=== PATIENT | male | born 1960 | race Caucasian/White ===

== ENCOUNTER 2021-07-17 09:22 | Emergency (ER) | payer BC ==
[~2021-07-17] VITALS: Ht 185 cm; Wt 125.0 kg
--- OUTSIDE RECORDS SUMMARY | 2021-07-17 09:30 | XMS REPORT | Encounter Summary ---
Author Author [facility] Organization [facility] Address Unknown Phone Unavailable Care Team Providers Care Construction Management Instructor Name Role Phone Singh Justin MD PCP Encounter Details Care Team Description [place] [address] [place] [address] Multiple myeloma in remission (HCC) 07/14/2021 Lab [facility] - [facility] [place] 1st floor [address], [facility], [facility] [phone] Social History Date Tobacco Use Types Packs/Day Years Used Never Smoker Cigars Smokeless Tobacco: Never Used Comments Alcohol Use Standard Drinks/Week 2 drinks a week Yes 0 (1 standard drink = 0.6 o z pure alcohol) Alcohol Habits Answer Date Recorded How often do you have a drink containing alcohol? No t asked How many drinks containing alcohol do you have on No t asked a typical day when you are drinking? How often do you have six or more drinks on one Not asked occasion? Comment: 2 drinks a week 07/08/2015 Sex Assigned at Date Recorded Male 03/26/2019 7:41 AM CDT documented as of this encounter Plan of Treatment Care Team Description Date Type Specialty 07/28/2021 [place] [address] [place] [address] 07/29/2021 Office Visit Medical Oncology documented as of this encounter Procedures Comments Procedure Name Priority Date/Time Associated Diag nosis CBC AND DIFF (MANUAL DIFF STAT 07/14/2021 Mult iple myeloma in IF NECESSARY) 1:50 PM FOLDING MACHINE FEEDER remission (HCC) documented in this encounter Results * CBC and Diff (manual diff if necessary) (07/14/2021 1:50 PM FOLDING MACHINE FEEDER) WBC 3.19 (L) 4.00 - 11.00 TH/uL [facility] RBC 4.57 4.31 - 5.84 mil/uL [facility] Hemoglobin 14.2 13.0 - 17.0 g/dL [facility] Hematocrit 44 40 - 50 % [facility] MCV 95 80 - 99 fL [facility] MCH 31 27 - 34 pg [facility] MCHC 33 32 - 36 % [facility] RDW 14.5 9.0 - 14.5 % [facility] Platelet Count 181 140 - 400 Th/uL [facility] MPV 9.8 9.4 - 12.3 fL [facility] Nucleated RBCs 0 0 - 0 /100 WBC [facility] % Neutrophils 38 (L) 45 - 78 % [facility] % Lymphocytes 33 15 - 47 % [facility] % Monocytes 25 (H) 0 - 12 % [facility] % Eosinophils 2 0 - 7 % [facility] % Basophils 2 0 - 2 % [facility] % Imm Grans 0 0 - 1 % [facility] # Granulocytes 1.21 (L) 1.70 - 6.80 TH/uL [facility] # Lymphocytes 1.05 1.00 - 3.30 TH/uL [facility] # Monocytes 0.79 0.20 - 0.90 TH/uL [facility] # Eosinophils 0.07 0.00 - 0.40 TH/uL [facility] # Basophils 0.07 0.00 - 0.10 TH/uL [facility] Specimen Blood - Venous Performing Organization Address City/State/ZIP Code [facility] [id number] [phone] documented in this encounter Visit Diagnoses Diagnosis Multiple myeloma in remission (HCC) Multiple myeloma in remission documented in this encounter Care Teams Start Date End Date Construction Management Instructor Relationship Specialty 09/06/14 Singh Justin MD PCP - General [facility] [id number] [facility] [address] [place] [address] documented as of this encounter
--- OUTSIDE RECORDS SUMMARY | 2021-07-17 09:30 | XMS REPORT | Encounter Summary ---
Author Author [facility] Organization [facility] Address Unknown Phone Unavailable Care Team Providers Care Ancient Art Curator Name Role Phone Singh Justin MD PCP Encounter Details Care Team Description Date Type Department Leilani Garcia RN 07/14/2021 Orders Only [facility] [address] [place] [address] Social History Date Tobacco Use Types Packs/Day [...] Specialty 07/28/2021 [place] [address] [place] [address] 07/29/2021 Office Visit Medical Oncology documented as of this encounter Visit Diagnoses Not on filedocumented in this encounter Care Teams Start Date End Date Ancient Art Curator Relationship Specialty 09/06/14 Singh Justin MD PCP - General Family [id number] [facility] [address] [place] [address] documented as of this encounter
--- OUTSIDE RECORDS SUMMARY | 2021-07-17 09:30 | XMS REPORT | Clinical Summary ---
Author Author [facility] Organization [facility] Address Unknown Phone Unavailable Care Team Providers Care Zipper Sewing Machine Operator Name Role Phone Singh Justin MD PCP Allergies No known active allergies Medications End Date Status Medication Sig Dispensed Refills Start Date Active vitamin E 1000 UNIT Take 1,000 0 capsule Units by mouth daily. Active coenzyme Q10 10 mg Take 10 mg by 0 capsule mouth daily. Active nitroglycerin (NITROSTAT) Dissolve 1 25 tablet 1 0.4 MG SL tablet tablet (0.4 0 mg total) under the tongue as needed for chest pain. May repeat for a total of 3 doses. Active omega 6-dog-acl-fish Take 2 60 capsule 0 03/13 oil-vit D3 Extra Strength capsules by 0 capsule mouth daily. Active carvediloL (COREG) 3.125 TAKE 1 TABLET 204 tablet 3 MG tablet BY MOUTH 0 TWICE DAILY Active apixaban (ELIQUIS) 5 mg Take one 180 tablet 3 tabletIndications: Other tablet by 1 acute pulmonary embolism mouth twice a without acute cor day pulmonale (HCC) Active DULoxetine (CYMBALTA) 60 Take 1 180 capsule 1 0 mg capsuleIndications: capsule (60 1 Neuropathic pain mg total) by mouth 2 (two) times a day. Active codeine-guaifenesin Take 5 mL by 120 mL 0 04/09 (GUAIFENESIN AC) 10-100 mouth every 6 1 mg/5 mL liquid (six) hours. Take 5 - 10 ml by mouth every 6 hours as needed for cough Max Daily Dose: 20 mL Active guaiFENesin (MUCINEX) 600 Take 600 mg 0 mg Ta12 12 hr tablet by mouth 2 (two) times a day. Active rosuvastatin (CRESTOR) 10 TAKE 1 TABLET 102 tablet 2 MG tabletIndications: BY MOUTH 1 Dyslipidemia, Coronary DAILY artery calcification, Other hyperlipidemia, Essential hypertension, Encounter for long-term (current) use of medications Active omeprazole (PRILOSEC) 20 Take 1 180 capsule 1 0 MG capsuleIndications: capsule (20 1 Gastroesophageal reflux mg total) by disease without mouth 2 (two) esophagitis times a day. Active gabapentin (NEURONTIN) TAKE 4 1080 capsule 2 300 MG CAPSULES BY 1 capsuleIndications: MOUTH 3 Sensory neuropathy TIMES DAILY Active tramadoL (ULTRAM) 50 mg Take 1 tablet 20 tablet 0 tablet (50 mg total) 1 by mouth every 8 (eight) hours as needed for pain. Active lenalidomide (REVLIMID) Take one 21 capsule 0 10 mg capsuleIndications: capsule days 1 multiple myeloma 1-21 every 28 days. Auth # [id number] ICD C90.00. Adult male 07/03/2021 Discontinued (Duplicate orde r - suppress on AVS & suppress cancellation message) lenalidomide (REVLIMID) Take one 21 capsule 0 10 mg capsuleIndications: capsule days 1 multiple myeloma 1-21 every 28 days. Auth # [id number] ICD C90.00. 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 Presented with increased fatigue and sh ortness of breath Has multiple myeloma on revlimid History of DVT CTA with small segmental and subsegment al pulmonary emboli within the rightupper and lower lobes. These are n onocclusive and have a linear eccentric appearance, and may be chroni c -Continue therapeutic loveox -LE ultrasound -Echo -Consult Heme/Onc Neuropathic pain 05/17/2017 Peripheral polyneuropathy 05/17/2017 Last Assessment & Plan: Formatting of this note might be differ ent from the original. S/P velcade for multiple myeloma -Continue gabapentin -Continue cymbalta MATHEW (obstructive sleep apnea) 02/26/2017 Last Assessment & Plan: Formatting of this note might be differ ent from the original. In process of obtaining CPAP History of DVT (deep vein thrombosis) 10/02/2015 Multiple myeloma 09/10/2015 Last Assessment & Plan: Formatting of this note might be differ ent from the original. Hx of stem nell transplant 3 years ago In remission Follows with Dr Woods On revlimid 21/28 days currently week o ff -Consult Heme/Onc Anemia 07/08/2015 Last Assessment & Plan: Formatting of this note might be differ ent from the original. Recent iron studies c/w anemia of chron ic disease. Follow Hgb. Essential hypertension 07/08/2015 Last Assessment & Plan: Formatting of this note might be differ ent from the original. SBP 110-120s -Continue Coreg with hold parameters Agatston CAC score, >400 09/18/2014 Overview: Formatting of this note might be differ ent from the original. Agatston score of 961.6 Heart palpitations 09/10/2014 Gastroesophageal reflux disease 03/27/2014 Last Assessment & Plan: Formatting of this note might be differ ent from the original. 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 GI believes this is likely sec to hemor rhoids. Recs miralax, anusol. No immediate plans for endoscopy. Abnormal laboratory test 07/08/2015 09/20/2019 Acute renal insufficiency 07/08/2015 08/17/2019 Last Assessment & Plan: Formatting of this note might be differ ent from the original. Likely in part due to obstructive stone . Nephrology consulted to further evaluat e. Concerned about multiple myeloma consid er monoclonal gammopathy, unintentional weight loss and hypercalc emia. Heme consulted. Skeletal survey pending. Nephrology has ordered calcitonin and i ncreased IVF's for hypercalcemia. Unintentional weight loss 07/08/2015 07/09/2015 Last Assessment & Plan: Formatting of this note might be differ ent from the original. With blood in stool request GI evaluati on, hold aspirin, check tsh; no palpable lymphadenopathy Ureterolithiasis 07/08/2015 09/20/2019 Last Assessment & Plan: Formatting of this note might be differ ent from the original. Stent and cysto scheduled today. Cont Abx. Constipation 07/08/2015 09/20/2019 Last Assessment & Plan: Formatting of this note might be differ ent from the original. miralax daily; with hemorrhoids will g bob anusol hc bid Encounters Care Team Description Date Type Specialty Alejo Woods MD Multiple myeloma in remission (HCC) 07/14/2021 Lab Lab Leilani Garcia RN 07/14/2021 Orders Only Medical Oncology Leilani Garcia RN Multiple myeloma in remission (HCC) (Porsha amrsha Dx) 07/08/2021 Orders Only Medical Oncology Alejo Woods MD Multiple myeloma in remission (HCC) 07/07/2021 Lab Lab Leilani Garcia RN Multiple myeloma in remission (HCC) (Porsha marsha Dx) 07/07/2021 Orders Only Medical Oncology Alejo Woods MD Specialty Pharmacy Prior Auth Coordinati on 07/03/2021 Specialty Pharmacy Pharmacy Alejo Woods MD Multiple myeloma, remission status unspe cified (HCC) (Primary Dx) 07/03/2021 Transcribe Medical Oncology Orders Natalia Gardner LMSW 07/03/2021 Telephone Medical Oncology Leilani Garcia RN Multiple myeloma in remission (HCC) (Porsha marsha Dx) 07/03/2021 Orders Only Medical Oncology Alejo Woods MD Multiple myeloma in remission (HCC) (Porsha marsha Dx) 07/02/2021 Orders Only Medical Oncology Leilani Garcia RN Multiple myeloma in remission (HCC) (Porsha marsha Dx) 07/02/2021 Orders Only Medical Oncology Alejo Woods MD Medication Refill 06/28/2021 Refill Medical Oncology Alejo Woods MD 06/03/2021 Documentation Medical Oncology Alejo Woods MD Multiple myeloma in remission (HCC) 06/02/2021 Lab Lab Nelli Ny RN 06/02/2021 Orders Only Medical Oncology Leilani Garcia RN Multiple myeloma in remission (HCC) (Porsha marsha Dx) 05/29/2021 Orders Only Medical Oncology Alejo Woods MD Multiple myeloma in remission (HCC) (Porsha marsha Dx) 05/29/2021 Orders Only Medical Oncology Leilani Garcia RN 05/28/2021 Orders Only Medical Oncology Aleoj Woods MD Medication Refill 05/28/2021 Refill Medical Oncology Alejo Woods MD Chemotherapy-induced neutropenia (HCC) 05/13/2021 Lab Lab Alejo Woods MD Chemotherapy-induced neutropenia (HCC) ( Primary Dx); Multiple myeloma in remission (HCC) 05/08/2021 Hospital Infusion Therapy Encounter Alejo Woods MD Chemotherapy-induced neutropenia (HCC) ( Primary Dx); Multiple myeloma in remission (HCC) 05/07/2021 Hospital Infusion Therapy Encounter Alejo Woods MD Chemotherapy-induced neutropenia (HCC) ( Primary Dx); Multiple myeloma in remission (HCC) 05/06/2021 Hospital Infusion Therapy Encounter Nelli Ny RN 05/06/2021 Refill Medical Oncology Nelli Ny RN Chemotherapy-induced neutropenia (HCC) ( Primary Dx) 05/06/2021 Orders Only Medical Oncology Nelli Ny RN Chemotherapy-induced neutropenia (HCC) 05/06/2021 Orders Only Medical Oncology Alejo Woods MD Multiple myeloma in remission (HCC) 05/05/2021 Lab Lab Alejo Woods MD Medication Refill 05/01/2021 Refill Medical Oncology Alejo Woods MD Multiple myeloma in remission (HCC) (Porsha marsha Dx) 04/30/2021 Office Visit Medical Oncology Leilani Garcia RN Multiple myeloma in remission (HCC) (Porsha marsha Dx) 04/30/2021 Orders Only Medical Oncology Alejo Woods MD Multiple myeloma in remission (HCC) (Porsha marsha Dx) 04/30/2021 Orders Only Medical Oncology Leilani Garcia RN 04/30/2021 Orders Only Medical Oncology Alejo Woods MD Multiple myeloma in remission (HCC) 04/28/2021 Lab Lab Eron Gonzalez MD Medication Refill 04/16/2021 Refill Neurology from Last 3 Months Immunizations Name Administration Dates Next Due Hepatitis A (adult) 12/31/2016 Hepatitis A (peds) 06/26/2016 Hepatitis B Vaccine, 12/31/2016, 09/03/2016, Adult Dosage Hib (PRT-T) 11/06/2016, 09/03/2016, IPV 11/06/2016, 09/03/2016, Influenza QIV (IM) 06/26/2016 Influenza, seasonal, 06/01/2019, 09/10/2014 injectable, preservatie free (IIV3). 15 = Influenza TIV Meningococcal (Menactra) 06/26/2016 conjugate vaccine MCV4 Moderna Sars-cov-2 Full 11/22/2020, 10/19/2020 Dose Pneumococcal Conjugate 11/06/2016, 09/03/2016, 13-Valent Pneumococcal 12/31/2016 Polysaccharide 23-Valent Tdap 11/06/2016, 09/03/2016, Family History Medical History Relation Name Comments Cancer Brother 1 Hypertension Brother 2 No Known Problems Brother 3 Diabetes type II Father Stroke Maternal Grandmother Stroke Maternal Uncle Breast cancer Mother Coronary artery disease Mother Stroke Paternal Grandfather Hypertension Paternal Grandmother Coronary artery disease Sister 1 Stroke Sister 1 Hypertension Sister 2 Relation Name Status Comments Brother 1 Cause of was Cancer at age 62. (Age 62) Brother 2 Alive Brother 3 Alive Father Cause of was Diabetes at age 70. (Age 70) Maternal Grandmother Maternal Uncle Mother Cause of was Cancer at age 70. (Age 70) Paternal Grandfather Paternal Grandmother Sister 1 Cause of was CAD at age 72. (Age 72) Sister 2 Alive Social History Date Tobacco Use Types Packs/Day Years Used Never Smoker Cigars Smokeless Tobacco: Never Used Tobacco Cessation: Counseling Given: No Comments Alcohol Use Standard Drinks/Week 2 drinks [...] Date Recorded Male 03/26/2019 7:41 AM CDT Last Filed Vital Signs Reading Time Taken Comments Vital Sign 154/84 05/08/2021 10:15 AM CDT Blood Pressure 79 05/08/2021 10:15 AM CDT Pulse 36.8 C (98.3 F) 05/08/2021 10:15 AM CDT Temperature 18 05/08/2021 10:15 AM CDT Respiratory Rate 96% 05/08/2021 10:15 AM CDT Oxygen Saturation - - Inhaled Oxygen Concentration 125 kg (275 lb 9.6 oz) 05/06/2021 10:20 AM CDT Weight 185.4 cm (6' 0.99") 05/06/2021 10:20 AM CDT Height 36.37 05/06/2021 10:20 AM CDT Body Mass Index Plan of Treatment Care Team Description Date Type Specialty 07/28/2021 [place] [address] [address] 07/29/2021 Office Visit Medical Oncology Health Maintenance Due Date Last Done Comments Hepatitis C Screen 1960 Zoster Vaccine# (1 of 2) 2008 Influenza Vaccine (#1) 2021 06/01/2019, 06/26/2016, 09/10/2014 COVID-19 Vaccine (4 - 10/24/2021 04/23/2021, Booster for Moderna 11/22/2020, series) 10/19/2020 Pneumococcal Vaccine: 12/31/2021 12/31/2016, Pediatrics (0 to 5 Years) 11/06/2016, and At-Risk Patients (6 09/03/2016, to 64 Years) (3 of 4 - Additional PPSV23) history exists Colorectal Screening via 04/19/2024 04/19/2014 Colonoscopy Td/Tdap# 11/06/2026 11/06/2016, 09/03/2016, 06/26/2016 Implants Device Identifier Shelf Expiration Date Model / Serial / L ot Implanted Type Area Manufactur er 10/15/2019 [id number] / / [id number] Implant Stent Ureteral Open Tip Non-Tissue ACMI 4.5fr X 28cm [id number] - [id number] Implant Implanted: Qty: 1 on 07/10/2015 by Bryan Cabral MD at [facility] Procedures Comments Procedure Name Priority Date/Time Associated Diag nosis CBC AND DIFF (MANUAL DIFF STAT 07/14/2021 Mult iple myeloma in IF NECESSARY) 1:50 PM HARDBOARD PANEL PRINTER remission (HCC) CBC AND DIFF (MANUAL DIFF STAT 07/07/2021 Mult iple myeloma in IF NECESSARY) 8:58 AM CDT remission (HCC) CBC AND DIFF (MANUAL DIFF STAT 06/02/2021 Mult iple myeloma in IF NECESSARY) 9:05 AM CDT remission (HCC) CBC AND DIFF (MANUAL DIFF STAT 05/13/2021 Chem otherapy-induced IF NECESSARY) 9:50 AM CDT neutropenia (HCC) CBC AND DIFF (MANUAL DIFF STAT 05/05/2021 Mult iple myeloma in IF NECESSARY) 10:37 AM CDT remission (HCC) PROTEIN ELECTROPHORESIS STAT 04/28/2021 Multip le myeloma in SERUM 9:52 AM CDT remission (HCC) IMMUNOGLOBULIN G, A, M STAT 04/28/2021 Multipl e myeloma in 9:52 AM CDT remission (HCC) IMMUNOFIXATION SERUM STAT 04/28/2021 Multiple myeloma in 9:52 AM CDT remission (HCC) FREE KAPPA+LAMBDA LIGHT STAT 04/28/2021 Multip le myeloma in CHAINS SERUM 9:52 AM CDT remission (HCC) COMPREHENSIVE METABOLIC STAT 04/28/2021 Multip le myeloma in PANEL 9:52 AM CDT remission (HCC) CBC AND DIFF (MANUAL DIFF STAT 04/28/2021 Mult iple myeloma in IF NECESSARY) 9:52 AM CDT remission (HCC) from Last 3 Months Results * CBC and Diff (manual diff if necessary) (07/14/2021 1:50 PM HARDBOARD PANEL PRINTER) Only the most recent of 6 results within the time period is included. WBC 3.19 (L) 4.00 - 11.00 TH/uL [facility] RBC 4.57 4.31 - 5.84 mil/uL [facility] Hemoglobin 14.2 13.0 - 17.0 g/dL [facility] Hematocrit 44 40 - 50 % [facility] MCV 95 80 - 99 fL [facility] MCH 31 27 - 34 pg [facility] MCHC 33 32 - 36 % [facility] RDW 14.5 9.0 - 14.5 % [facility] Platelet Count 181 140 - 400 Th/uL [facility] MPV 9.8 9.4 - 12.3 fL [facility] Nucleated RBCs 0 0 - 0 /100 WBC [facility] % Neutrophils 38 (L) 45 - 78 % [facility] % Lymphocytes 33 15 - 47 % [facility] % Monocytes 25 (H) 0 - 12 % [facility] % Eosinophils 2 0 - 7 % [facility] % Basophils 2 0 - 2 % [facility] % Imm Grans 0 0 - 1 % [facility] # Granulocytes 1.21 (L) 1.70 - 6.80 TH/uL [facility] # Lymphocytes 1.05 1.00 - 3.30 TH/uL [facility] # Monocytes 0.79 0.20 - 0.90 TH/uL [facility] # Eosinophils 0.07 0.00 - 0.40 TH/uL [facility] # Basophils 0.07 0.00 - 0.10 TH/uL [facility] Specimen Blood - Venous Performing Organization Address City/State/ZIP Code P abril Number [facility] [address] [place] [address] * Free [place]+Lambda Light Chains Serum (04/28/2021 9:52 AM CDT) Pathologist [facility] Free [place] 44.0 (H) 3.3 - 19.4 mg/L [facility] Light Chains Free [place]ambda 26.5 (H) 5.7 - 26.3 mg/L [facility] Light Chains [place]/Lambda 1.66 (H) 0.26 - 1.65 [facility] Ratio Comment: Performed at: BN - [facility] [address] [id number] Door Opener: Yung Lane MD, Phone: [phone] Specimen Blood Performing Organization Address City/[facility] Code P abril Number [facility] [address] [place], [place] [address] [facility] Interface [id number] [place] [address] 5 [facility]7 [facility] * Protein Electrophoresis Serum (04/28/2021 9:52 AM CDT) [facility] Protein Total 7.5 6.0 - 8.2 g/dL [facility] Albumin 3.6 3.3 - 5.0 g/dL [facility] Alpha 1 0.2 0.1 - 0.3 g/dL [facility] Alpha 2 0.8 0.5 - 1.0 g/dL [facility] Beta 1.3 0.7 - 1.5 g/dL [facility] Gamma 1.6 0.5 - 1.7 g/dL [facility] A/G Ratio 0.9 [facility] Pathologist Reviewed by Claude [facility] Cristian Elena Scott, SARAH.Comment: Normal Hospital La b protein electrophoresis pattern. Specimen Blood Performing Organization Address City/State/ZIP Code P abril Number [facility] [address] [place] [address] LABORATORIES [facility] [address] [place] [address] * Immunoglobulin G, A, M (04/28/2021 9:52 AM CDT) Immunoglobulin 396 60 - 400 mg/dL [facility] Immunoglobulin 1,333 600 - 1,500 mg/dL [facility] Lab Immunoglobulin 112 50 - 300 mg/dL [facility] Lab Specimen Blood Performing Organization Address City/[facility]/ZIP Code P abril Number [address] [address] LABORATORIES [facility] [address] [place] [address] * Immunofixation Serum (04/28/2021 9:52 AM CDT) Pathologist [facility] Immunofixation No monoclonal protein [facility] identified. Hospital Lab Pathologist Reviewed by [facility] M.D., SARAH. Hospital Lab Specimen Blood Performing Organization Address City/[facility] P abril Number [address] [address] LABORATORIES [facility] [address] [place] [address] * Comprehensive Metabolic Panel (04/28/2021 9:52 AM CDT) [facility] Sodium 138 133 - 147 MEQ/L [facility] Lab Potassium 5.0 3.5 - 5.3 MEQ/L [facility] Chloride 104 96 - 112 MEQ/L [facility] Carbon Dioxide 28 20 - 32 MEQ/L [facility] Anion Gap 5 5 - 17 [facility] Lab Calcium 9.2 8.4 - 10.5 mg/dL [facility] Glucose 135 (H) 70 - 100 mg/dL [facility] Protein Total 7.5 6.0 - 8.2 g/dL [facility] Serum [facility] Albumin 4.1 3.5 - 5.0 g/dL [facility] Alkaline 59 42 - 140 IU/L [facility] Phosphatase [facility] Alanine 37 0 - 49 IU/L [facility] Aminotransferas [facility] e Aspartate 33 15 - 46 IU/L [facility] Aminotransferas [facility] e Bilirubin Total 0.5 0.2 - 1.3 mg/dL [facility] Blood Urea 20 7 - 26 mg/dL [facility] Nitrogen [facility] Creatinine 1.2 0.6 - 1.3 mg/dL [facility] eGFR Male AA 74 60 - 200 [facility] mL/min/1.73sq m [facility] eGFR Male 61 60 - 200 [facility] Non-AA mL/min/1.73sq m [facility] Specimen Blood Performing Organization Address City/State/ZIP Code P abril Number [facility] [address] [place] [address] [facility] [address] [place] [address] from Last 3 Months Insurance Type Payer Benefit Subscriber ID Effective Phone Address Plan / Dates Group [facility] [id number] 2020-P [address] [place] [address] Advance Directives For more information, please contact: [phone] Patient Mail Censor Explanation Type Date Recorded Advance Directives and Living Will Power of Tank Truck Mechanic Health Care Directive Date Inactivated Comments Code Status Date Activated 11/18/2018 5:43 PM Full Code 11/17/2018 2:17 PM 07/11/2015 5:51 PM Full Code 07/10/2015 1:13 PM 07/10/2015 1:13 PM Full Code 07/10/2015 11:38 AM 07/10/2015 11:38 AM Full Code 07/08/2015 2:52 PM Care Teams Start Date End Date Zipper Sewing Machine Operator Relationship Specialty 09/06/14 Singh Justin MD PCP - General [address] [address]
--- OUTSIDE RECORDS SUMMARY | 2021-07-17 09:31 | XMS REPORT | Encounter Summary ---
Author Author [facility] Organization [facility] Address Unknown Phone Unavailable Care Team Providers Care Network Cabler Name Role Phone Singh Justin MD PCP Reason for Referral * Consultation (Routine) - Authorized Diagnoses / Procedures Referred By [facility] Multiple myeloma, remission status unspecified (H[place]) [place] [address] [place] [address] [facility] Cancer [address] [place] [address] Medical Oncology Referral ID Status Reason Start Date Expiration Visits Vi sits Date Requested Authorized [id number] Authorized Specialty Services 07/03/2021 01/01/2022 1 1 Required Encounter Details Care Team Description [place] [address] [place], [place] [address] Multiple myeloma, remission status unspe cified (HCC) (Primary Dx) 07/03/2021 Transcribe [facility] Cancer Orders Specialists [address] [facility] [address] [place] [address] Social History Date Tobacco Use Types Packs/Day [...] Specialty 07/28/2021 [place] [address] [facility] [address] [place], [place] [id number] 07/29/2021 Office Visit Medical Oncology Order Schedule Name Type Priority Associated Diag noses 1 Occurrences starting 07/03/2021 until 01/01/2022 SOARS Referral to Social Outpatient Routine Multi ple myeloma, Work Referral remission status unspecified (HCC) documented as of this encounter Visit Diagnoses Diagnosis Multiple myeloma, remission status unsp ecified (HCC) - Primary documented in this encounter Care Teams Start Date End Date Network Cabler Relationship Specialty 09/06/14 Singh Justin MD PCP - General [address] [place], [place] [id number] documented as of this encounter
--- OUTSIDE RECORDS SUMMARY | 2021-07-17 09:31 | XMS REPORT | Encounter Summary ---
Author Author Organization Address Unknown Phone Unavailable Care Team Providers Care Cutter Banana Room Name Role Phone Singh Justin MD PCP Encounter Details Care Team Description [place] [address] [place], [place] [id number] 06/03/2021 Documentation [facility] Specialists [address] [place], [place] [id number] Social History Date Tobacco Use Types Packs/Day [...] Specialty 07/28/2021 [place] [address] [place], [place] [phone] 07/29/2021 Office Visit Medical Oncology documented as of this encounter Visit Diagnoses Not on filedocumented in this encounter Care Teams Start Date End Date Cutter Banana Room Relationship Specialty 09/06/14 Singh Justin MD PCP - General [address] [address] documented as of this encounter
--- OUTSIDE RECORDS SUMMARY | 2021-07-17 09:31 | XMS REPORT | Encounter Summary ---
Author Author [facility] Organization [facility] Address Unknown Phone Unavailable Care Team Providers Care Guest Relations Agent Name Role Phone Singh Justin MD PCP Encounter Details Care Team Description Date Type Department Lielani Garcia RN Multiple myeloma in remission (HCC) ([facility] marsha Dx) 07/08/2021 Orders Only [facility] [address] [place] [address] Social History Date Tobacco Use [...] Specialty 07/28/2021 [place] [address] [address] [place] [address] 07/29/2021 Office Visit Medical Oncology documented as of this encounter Visit Diagnoses Diagnosis Multiple myeloma in remission (HCC) - P rimary Multiple myeloma in remission documented in this encounter Care Teams Start Date End Date Guest Relations Agent Relationship Specialty 09/06/14 Singh Justin MD PCP - General [facility] [address] [place] [address] documented as of this encounter
--- OUTSIDE RECORDS SUMMARY | 2021-07-17 09:31 | XMS REPORT | Encounter Summary ---
Author Author [facility] Organization [facility] Address Unknown Phone Unavailable Care Team Providers Care Shared Services Representative Name Role Phone Singh Justin MD PCP Encounter Details Care Team Description [place] [address] [place] [address] Multiple myeloma in remission (HCC) ([facility] larson Dx) 07/02/2021 Orders Only [facility] [address] [place], [place] [id number] Social History Date Tobacco Use Types Packs/Day [...] Specialty 07/28/2021 [place] [address] [place], [place] [phone] 07/29/2021 Office Visit Medical Oncology documented as of this encounter Visit Diagnoses Diagnosis Multiple myeloma in remission (HCC) - P rimary Multiple myeloma in remission documented in this encounter Care Teams Start Date End Date Shared Services Representative Relationship Specialty 09/06/14 Singh Justin MD PCP - General [address] [place] [address] documented as of this encounter
--- OUTSIDE RECORDS SUMMARY | 2021-07-17 09:31 | XMS REPORT | Encounter Summary ---
Author Author [facility] Organization [facility] Address Unknown Phone Unavailable Care Team Providers Care Associate Dentist Name Role Phone Singh Justin MD PCP Encounter Details Care Team Description Date Type Department Natalia Gardner LMSW 07/03/2021 Telephone [facility] [address] [facility] [address] [place] [address] Social History Date Tobacco Use Types Packs/Day [...] AM CDT documented as of this encounter Miscellaneous Notes * Telephone Encounter - Natalia Gardner LMSW - 07/03/2021 1:25 PM CDT Fiona referral for asst with prior auth for Revlimid. Deya RN sent message alen del toro who could help with a prior auth for Revlimid. Radha from [facility] pharmacy will do the prior auth. documented in this encounter Plan of Treatment Care Team Description Date Type Specialty 07/28/2021 [place] [address] [place] [address] 07/29/2021 Office Visit Medical Oncology documented as of this encounter Visit Diagnoses Not on filedocumented in this encounter Care Teams Start Date End Date Associate Dentist Relationship Specialty 09/06/14 Singh Justin MD PCP - General Family [address] [facility] [address] [place] [address] documented as of this encounter
--- OUTSIDE RECORDS SUMMARY | 2021-07-17 09:31 | XMS REPORT | Encounter Summary ---
Author Author [facility] Organization [facility] Address Unknown Phone Unavailable Care Team Providers Care Nurse Orthopedic Name Role Phone Singh Justin MD PCP Encounter Details Care Team Description [place] [address] [address] Specialty Pharmacy Prior Auth Coordinati on 07/03/2021 Specialty [facility] [address] [place] [address] Social History Date Tobacco Use Types Packs/Day [...] AM CDT documented as of this encounter Progress Notes * Radha Pacheco - 07/03/2021 2:11 PM CDT Specialty Pharmacy Prior Authorization Progress Note Medication(s): Revlimid Prior Authorization Status: Approved Approved through: 07/03/22 Fill Pharmacy: [facility] Approval letter scanned into [employer] Patient can continue filling with [facility]. MPN contacted [employer] to inform of appr oval. RX reprocessed for $0 copay. [employer] will contact patient for delivery. Radha Pacheco * Radha Pacheco - 07/03/2021 2:11 PM CDT A reauthorization request for Revlimid has been submitted to [employer]. EOC ID: [id number] documented in this encounter Plan of Treatment Care Team Description Date Type Specialty 07/28/2021 [place] [address] [address] [facility] [address] [place] [address] 07/29/2021 Office Visit Medical Oncology documented as of this encounter Visit Diagnoses Not on filedocumented in this encounter Care Teams Start Date End Date Nurse Orthopedic Relationship Specialty 09/06/14 Singh Justin MD PCP - General Family [address] [facility] [address] [place] [address] documented as of this encounter
--- OUTSIDE RECORDS SUMMARY | 2021-07-17 09:31 | XMS REPORT | Encounter Summary ---
Author Author [facility] Organization [facility] Address Unknown Phone Unavailable Care Team Providers Care Guard Museum Name Role Phone Singh Justin MD PCP Encounter Details Care Team Description Date [place] [address] [place] [address] Multiple myeloma in remission (HCC) 07/07/2021 Lab [facility]st [facility] [address], [facility] [phone] Social History Date Tobacco Use Types Packs/Day [...] Specialty 07/28/2021 [place] [address] [place] [address] 07/29/2021 Office Visit Medical Oncology documented as of this encounter Procedures Comments Procedure Name Priority Date/Time Associated Diag nosis CBC AND DIFF (MANUAL DIFF STAT 07/07/2021 Mult iple myeloma in IF NECESSARY) 8:58 AM CDT remission (HCC) documented in this encounter Results * CBC and Diff (manual diff if necessary) (07/07/2021 8:58 AM CDT) WBC 2.55 (L) 4.00 - 11.00 TH/uL [facility] RBC 4.46 4.31 - 5.84 mil/uL [facility] Hemoglobin 14.0 13.0 - 17.0 g/dL [facility] Hematocrit 43 40 - 50 % [facility] MCV 96 80 - 99 fL [facility] MCH 31 27 - 34 pg [facility] MCHC 33 32 - 36 % [facility] RDW 14.4 9.0 - 14.5 % [facility] Platelet Count 186 140 - 400 Th/uL [facility] MPV 10.4 9.4 - 12.3 fL [facility] Nucleated RBCs 0 0 - 0 /100 WBC [facility] % Neutrophils 33 (L) 45 - 78 % [facility] % Lymphocytes 42 15 - 47 % [facility] % Monocytes 17 (H) 0 - 12 % [facility] % Eosinophils 8 (H) 0 - 7 % [facility] % Basophils 1 0 - 2 % [facility] % Imm Grans 0 0 - 1 % [facility] # Granulocytes 0.84 (L) 1.70 - 6.80 TH/uL [facility] # Lymphocytes 1.06 1.00 - 3.30 TH/uL [facility] # Monocytes 0.44 0.20 - 0.90 TH/uL [facility] # Eosinophils 0.20 0.00 - 0.40 TH/uL [facility] # Basophils 0.02 0.00 - 0.10 TH/uL [facility] Specimen Blood - Venous Performing Organization Address City/State/ZIP Code P abril Number [facility] [address] [id number] documented in this encounter Visit Diagnoses Diagnosis Multiple myeloma in remission (HCC) Multiple myeloma in remission documented in this encounter Care Teams Start Date End Date Guard Museum Relationship Specialty 09/06/14 Singh Justin MD PCP - General [facility] [address] [facility] [address] [place] [address] documented as of this encounter
--- OUTSIDE RECORDS SUMMARY | 2021-07-17 09:31 | XMS REPORT | Encounter Summary ---
Author Author [facility] Organization [facility] Address Unknown Phone Unavailable Care Team Providers Care Outpatient Program Coordinator Name Role Phone Singh Justin MD PCP Reason for Visit * Reason Comments Medication Refill Encounter Details Care Team Description Date [place] [address] [place], [place] [phone] Medication Refill 06/28/2021 Refill [facility] [address] [place], [place] [phone] Social History Date Tobacco Use Types Packs/Day [...] Specialty 07/28/2021 [place] [address] [place], [place] [phone] 07/29/2021 Office Visit Medical Oncology documented as of this encounter Visit Diagnoses Diagnosis Multiple myeloma in remission (HCC) Multiple myeloma in remission documented in this encounter Care Teams Start Date End Date Outpatient Program Coordinator Relationship Specialty 09/06/14 Singh Justin MD PCP - General [address] [address] documented as of this encounter
--- OUTSIDE RECORDS SUMMARY | 2021-07-17 09:31 | XMS REPORT | Encounter Summary ---
Author Author [facility] Organization [facility] Address Unknown Phone Unavailable Care Team Providers Care Car Inspection And Repair Manager Name Role Phone Singh Justin MD PCP Encounter Details Care Team Description Date Type Department Leilani Garcia RN Multiple myeloma in remission (HCC) ([facility] marsha Dx) 07/02/2021 Orders Only [facility] [address] [place] [address] Social History Date Tobacco Use [...] Specialty 07/28/2021 [place] [address] [address] [place] [address] 07/29/2021 Office Visit Medical Oncology documented as of this encounter Visit Diagnoses Diagnosis Multiple myeloma in remission (HCC) - P rimary Multiple myeloma in remission documented in this encounter Care Teams Start Date End Date Car Inspection And Repair Manager Relationship Specialty 09/06/14 Singh Justin MD PCP - General [facility] [address] [place] [address] documented as of this encounter
--- OUTSIDE RECORDS SUMMARY | 2021-07-17 09:31 | XMS REPORT | Encounter Summary ---
Author Author [facility] Organization [facility] Address Unknown Phone Unavailable Care Team Providers Care Fork Truck Operator Name Role Phone Singh Justin MD PCP Encounter Details Care Team Description Date Type Department Leilani Garcia RN Multiple myeloma in remission (HCC) ([facility] marsha Dx) 07/07/2021 Orders Only [facility] [address] [place] [address] Social History Date Tobacco Use [...] Specialty 07/28/2021 [place] [address] [address] [place] [address] 07/29/2021 Office Visit Medical Oncology documented as of this encounter Results * CBC and Diff (manual diff if necessary) (07/14/2021 1:50 PM MANAGER [facility]ISSION) WBC 3.19 (L) 4.00 - 11.00 TH/uL [facility] RBC 4.57 4.31 - 5.84 mil/uL [facility] Hemoglobin 14.2 13.0 - 17.0 g/dL [facility] Hematocrit 44 40 - 50 % [facility] MCV 95 80 - 99 fL [facility] MCH 31 27 - 34 pg [facility] MCHC 33 32 - 36 % [facility] RDW 14.5 9.0 - 14.5 % [facility] Platelet Count 181 140 - 400 Th/uL [facility] MPV 9.8 9.4 - 12.3 fL [facility] Nucleated RBCs 0 0 - 0 /100 WBC [facility] % Neutrophils 38 (L) 45 - 78 % [facility] % Lymphocytes 33 15 - 47 % [facility] % Monocytes 25 (H) 0 - 12 % [facility] % Eosinophils 2 0 - 7 % [facility] % Basophils 2 0 - 2 % [facility] % Imm Grans 0 0 - 1 % [facility] # Granulocytes 1.21 (L) 1.70 - 6.80 TH/uL [facility] # Lymphocytes 1.05 1.00 - 3.30 TH/uL [facility] # Monocytes 0.79 0.20 - 0.90 TH/uL [facility] # Eosinophils 0.07 0.00 - 0.40 TH/uL [facility] # Basophils 0.07 0.00 - 0.10 TH/uL [facility] Specimen Blood - Venous Performing Organization Address City/State/ZIP Code P abril Number [facility] [address] [place] [address] documented in this encounter Visit Diagnoses Diagnosis Multiple myeloma in remission (HCC) - P rimary Multiple myeloma in remission documented in this encounter Care Teams Start Date End Date Fork Truck Operator Relationship Specialty 09/06/14 Singh Justin MD PCP - General Family [address] [facility] [address] [place] [address] documented as of this encounter
--- OUTSIDE RECORDS SUMMARY | 2021-07-17 09:31 | XMS REPORT | Encounter Summary ---
Author Author [facility] Organization [facility] Address Unknown Phone Unavailable Care Team Providers Care Grader Tender Name Role Phone Singh Justin MD PCP Encounter Details Care Team Description Date Type Department Leilani Garcia RN Multiple myeloma in remission (HCC) ([facility] marsha Dx) 07/03/2021 Orders Only [facility] [address] [place] [address] Social History Date Tobacco Use [...] Specialty 07/28/2021 [place] [address] [address] [place] [address] 07/29/2021 Office Visit Medical Oncology documented as of this encounter Visit Diagnoses Diagnosis Multiple myeloma in remission (HCC) - P rimary Multiple myeloma in remission documented in this encounter Care Teams Start Date End Date Grader Tender Relationship Specialty 09/06/14 Singh Justin MD PCP - General [facility] [address] [place] [address] documented as of this encounter
--- OUTSIDE RECORDS SUMMARY | 2021-07-17 09:32 | XMS REPORT | Clinical Summary ---
Author Author [facility] Organization [facility] Address Unknown Phone Unavailable Care Team Providers Care Children'S Lunchroom Supervisor Name Role Phone Miles Conn DO Unavailable Singh Justin MD PCP Hernando Oseguera MD Unavailable Arpit Subramanian MD Unavailable Alejo Woods MD Unavailable Source Comments Some departments are not documenting in the electronic medical record. If you d o not see the information that you expected, contact Release of Information in [facility] Health Information Management department at [phone] for further assistan ce in locating additional records.[facility] Allergies No known active allergies Medications End Date Status Medication Sig Dispensed Refills Start Date Active FLAXSEED OIL (OMEGA 3 PO) Take 1 Cap by 0 mouth daily. ON HOLD DURING TRANSPLANT Active omeprazole DR(+) Take 1 Cap by 90 Cap 0 12/01/ 01 (PRILOSEC) 20 mg capsule mouth twice 6 daily. ON HOLD DURING TRANSPLANT Active carvedilol (COREG) 3.125 Take 1 Tab by 0 12/05 / mg tablet mouth twice 6 daily with meals. HOLD FOR NOW WITH DROP IN BLOOD PRESSURE 12/05 Active AMITRIPTYLINE HCL Pt not using. 100 g 2 (AMITRIPTYLINE/GABAPENTIN 6 /EMU OIL(#)) 4/4/10 %Indications: Neuropathy, Multiple myeloma (HCC) Active rosuvastatin (CRESTOR) 10 Take 1 Tab by 90 Tab 0 mg tablet mouth at 6 bedtime daily. Active traMADol (ULTRAM) 50 mg Take 1 Tab by 0 tablet mouth at 6 bedtime daily. Active DULOXETINE HCL (CYMBALTA Take by 0 PO) mouth. Active rivaroxaban (XARELTO) 10 Take 1 Tab by 30 Tab 0 mg tablet mouth daily. 6 Active gabapentin (NEURONTIN) Take 3 240 Cap 3 300 mg capsule capsules by 6 mouth in the morning, 2 capsules in the afternoon and 3 capsules at bedtime Additional Information Patient taking differently: Take 3 capsules by mouth in the morning, 3 capsules in the afternoon and 3 capsules at bedtime, Reported on 12/14/2017 Active UBIDECARENONE/OMEGA-3/VIT Take by 0 E (CO [id number] E-FISH mouth daily. OIL PO) Active VITAMIN E ACETATE Take by 0 (VITAMIN E PO) mouth daily. Active aspirin EC 81 mg tablet Take 81 mg by 0 mouth daily. Take with food. Active folic acid (FOLVITE) 1 mg Take 1 mg by 0 tablet mouth daily. Active magnesium oxide (MAG-OX) Take 400 mg 0 400 mg tablet by mouth daily. Active Problems Problem Noted Date Peripheral neuropathy 12/15/2015 Fatigue 12/06/2015 H/O peripheral stem cell transplant 12/03/2015 Overview: Formatting of this note might be differ ent from the original. 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 CMV: negative Cell Source: Peripheral, autologous, cr yopreserved Consents/Studies: 8322, autologous, blo od Coordinator: Ashtyn Carvalho RN Chemotherapy-induced nausea 12/03/2015 DVT (deep venous thrombosis) 11/20/2015 Multiple myeloma 11/08/2015 Resolved Problems Problem Noted Date Resolved Date Nausea 12/16/2015 06/17/2016 Tachycardia 12/12/2015 12/14/2015 Dizziness 12/11/2015 06/17/2016 Fall at home 12/11/2015 06/17/2016 Dyspepsia 12/09/2015 06/17/2016 Pancytopenia due to antineoplastic chemotherapy 12/06/2015 06/17/2016 Diarrhea 12/04/2015 06/17/2016 Conditioning chemotherapy prior to peripheral blood s tem cell transplant 12/02/2015 12/04/2015 Immunizations Name Administration Dates Next Due Flu Vaccine Quadrivalent 06/17/2016 =>3 Yo (Preservative Free) MMR Vaccine 12/14/2017 Surgical History Surgery Date Site/Laterality Comments TONSILLECTOMY COLONOSCOPY Medical History Medical History Date Comments Multiple myeloma and immunoproliferative neoplasms (HCC) Hypertension Stomach disorder Family History Medical History Relation Name Comments Cancer Brother Diabetes Father Stroke Maternal Aunt Unknown to Patient Maternal Grandfather Stroke Maternal Grandmother Stroke Maternal Uncle Cancer Mother Stroke Paternal Grandfather Hypertension Paternal Grandmother Stroke Sister Relation Name Status Comments Brother Father Maternal Aunt Maternal Grandfather Maternal Grandmother Maternal Uncle Mother Paternal Grandfather Paternal Grandmother Sister Social History Date Tobacco Use Types Packs/Day Years Used Passive Smoke Exposure - Never Smoker Smokeless Tobacco: Never Used Comments Alcohol Use Standard Drinks/Week No 0 (1 standard drink = 0.6 o z pure alcohol) Sex Assigned at Date Recorded Not on file Last Filed Vital Signs Reading Time Taken Comments Vital Sign 118/75 12/13/2018 10:10 AM CDT Blood Pressure 87 12/13/2018 10:10 AM CDT Pulse 36.8 C (98.3 F) 12/13/2018 10:10 AM CDT Temperature 16 12/13/2018 10:10 AM CDT Respiratory Rate 100% 12/13/2018 10:10 AM CDT Oxygen Saturation - - Inhaled Oxygen Concentration 127.1 kg (280 lb 3.2 oz) 12/13/2018 10:10 AM CDT Weight 185.4 cm (6' 0.99") 12/13/2018 10:10 AM CDT Height 36.98 12/13/2018 10:10 AM CDT Body Mass Index Plan of Treatment Health Maintenance Due Date Last Done Comments HIV SCREENING 1973 DTAP/TDAP VACCINES (1 - 1976 Tdap) HEPATITIS C SCREENING 1976 PHYSICAL (COMPREHENSIVE) 1976 EXAM COLORECTAL CANCER 2008 SCREENING SHINGLES RECOMBINANT 2008 VACCINE (1 of 2) COVID-19 VACCINE (2 - 11/16/2020 10/19/2020 Moderna risk 4-dose series) INFLUENZA VACCINE 04/06/2021 06/17/2016 Implants Device Identifier Shelf Expiration Date Model / Serial / L ot Implanted Type Area Manufactur er [id number] 09/02/2017 [id number] / [employer] / [id number] Cath 23cm 12fr Hk Trf - Strifusion Right: Chest CR Implanted: Qty: 1 on 11/26/2015 by BARD:Aj Curiel MD at [facility] Results Not on filefrom Last 3 Months Insurance Type Payer Benefit Subscriber ID Effective Phone Address Plan / Dates Group PPO BCBS MARY BCBS MARY [id number] 2020-P [phone] [address] [facility] resent [id number] [place] [address] [phone] [id number] [facility] (Home[facility] [place] [address] Advance Directives Patient Agricultural Research Director Explanation Type Date Recorded Advance 12/04/2016 8:51 AM Directive/DPOA Care Teams Start Date End Date Children'S Lunchroom Supervisor Relationship Specialty 10/30/15 Miles Conn DO PCP - BMT [address] [facility] Transplant [place], [place] [phone] 10/31/15 Singh Justin MD PCP - General Family [address] [facility] [address] [place] [address] 11/08/15 Hernando Oseguera MD Hematology & [address] [facility] Oncology Cancer [place], [place] [phone] 11/08/15 Arpit Subramanian MD Internal [address] [place], [place] [phone] 02/19/20 Alejo Woods MD Attending Hematology & [address] [facility] Oncology [address] [place] [address]
--- OUTSIDE RECORDS SUMMARY | 2021-07-17 09:32 | XMS REPORT | Encounter Summary ---
Author Author [facility] Organization [facility] Address Unknown Phone Unavailable Care Team Providers Care House Wrecker Name Role Phone Singh Justin MD PCP Encounter Details Care Team Description Date Type Department Nelli Ny RN 06/02/2021 Orders Only [facility] [address] [place] [address] Social History Date Tobacco Use [...] Specialty 07/28/2021 [place] [address] [address] [place] [address] 07/29/2021 Office Visit Medical Oncology documented as of this encounter Visit Diagnoses Not on filedocumented in this encounter Care Teams Start Date End Date House Wrecker Relationship Specialty 09/06/14 Singh Justin MD PCP - General [address] [place] [address] documented as of this encounter
--- OUTSIDE RECORDS SUMMARY | 2021-07-17 09:32 | XMS REPORT | Encounter Summary ---
Author Author [facility] Organization [facility] Address Unknown Phone Unavailable Care Team Providers Care Lease Out Worker Name Role Phone Singh Justin MD PCP Reason for Visit * Reason Comments Medication Refill Encounter Details Care Team Description [place] [address] [place], [place] [id number] Medication Refill 05/28/2021 Refill [facility] [address] [place], [place] [phone] Social History Date Tobacco Use Types Packs/Day [...] Specialty 07/28/2021 [place] [address] [place], [place] [phone] 07/29/2021 Office Visit Medical Oncology documented as of this encounter Visit Diagnoses Diagnosis Multiple myeloma in remission (HCC) Multiple myeloma in remission documented in this encounter Care Teams Start Date End Date Lease Out Worker Relationship Specialty 09/06/14 Singh Justin MD PCP - General [address] [address] documented as of this encounter
--- OUTSIDE RECORDS SUMMARY | 2021-07-17 09:32 | XMS REPORT | Encounter Summary ---
Author Author [facility] Organization [facility] Address Unknown Phone Unavailable Care Team Providers Care Power Plant Manager Name Role Phone Singh Justin MD PCP Encounter Details Care Team Description [place] [address] [place] [address] Multiple myeloma in remission (HCC) (Porsha marsha Dx) 05/29/2021 Orders Only [facility] [address] [place] [address] Social History Date Tobacco Use [...] Specialty 07/28/2021 [place] [address] [place], [place] [id number] 07/29/2021 Office Visit Medical Oncology documented as of this encounter Visit Diagnoses Diagnosis Multiple myeloma in remission (HCC) - P rimary Multiple myeloma in remission documented in this encounter Care Teams Start Date End Date Power Plant Manager Relationship Specialty 09/06/14 Singh Justin MD PCP - General [address] [place] [address] documented as of this encounter
--- OUTSIDE RECORDS SUMMARY | 2021-07-17 09:32 | XMS REPORT | Encounter Summary ---
Author Author [facility] Organization [facility] Address Unknown Phone Unavailable Care Team Providers Care Menagerie Caretaker Name Role Phone Singh Justin MD PCP Encounter Details Care Team Description Date [place] [address] [place] [address] Multiple myeloma in remission (HCC) 06/02/2021 Lab [facility] - [facility] 1st floor [address] Floor, [facility], [facility] [phone] Social History Date Tobacco Use Types Packs/Day [...] Specialty 07/28/2021 [place] [address] [place] [address] 07/29/2021 Office Visit Medical Oncology documented as of this encounter Procedures Comments Procedure Name Priority Date/Time Associated Diag nosis CBC AND DIFF (MANUAL DIFF STAT 06/02/2021 Mult iple myeloma in IF NECESSARY) 9:05 AM CDT remission (HCC) documented in this encounter Results * CBC and Diff (manual diff if necessary) (06/02/2021 9:05 AM CDT) WBC 2.65 (L) 4.00 - 11.00 TH/uL [facility] RBC 4.31 4.31 - 5.84 MIL/uL [facility] Hemoglobin 13.6 13.0 - 17.0 g/dL [facility] Hematocrit 40 40 - 50 % [facility] MCV 93 80 - 99 fL [facility] MCH 32 27 - 34 pg [facility] MCHC 34 32 - 36 % [facility] RDW 15.3 (H) 11.5 - 14.5 % [facility] Platelet Count 154 140 - 400 TH/uL [facility] MPV 10.0 9.4 - 12.3 fL [facility] Nucleated RBCs 0 0 - 0 /100 [facility] % Neutrophils 39 (L) 45 - 78 % [facility] %Lymphocytes 37 15 - 47 % [facility] % Monocytes 16 (H) 0 - 12 % [facility] %Eosinophils 8 (H) 0 - 7 % [facility] %Basophils 0 0 - 2 % [facility] % Imm Grans 0 0 - 1 % [facility] # Granulocytes 1.04 (L) 1.70 - 6.80 TH/uL [facility] # Lymphocytes 0.98 (L) 1.00 - 3.30 TH/uL [facility] # Monocytes 0.42 0.20 - 0.90 TH/uL [facility] # Eosinophils 0.20 0.00 - 0.40 TH/uL [facility] # Basophils 0.01 0.00 - 0.10 TH/uL [facility] Specimen Blood Performing Organization Address City/State/ZIP Code P abril Number [email or web address] [address] [place] [address] [facility] [address] [place] [address] documented in this encounter Visit Diagnoses Diagnosis Multiple myeloma in remission (HCC) Multiple myeloma in remission documented in this encounter Care Teams Start Date End Date Menagerie Caretaker Relationship Specialty 09/06/14 Singh Justin MD PCP - General [address] [place], [place] [id number] documented as of this encounter
--- OUTSIDE RECORDS SUMMARY | 2021-07-17 09:32 | XMS REPORT | Encounter Summary ---
Author Author [facility] Organization [facility] Address Unknown Phone Unavailable Care Team Providers Care Robotic Machine Operator Name Role Phone Singh Justin MD PCP Encounter Details Care Team Description Date Type Department Leilani Garcia RN 05/28/2021 Orders Only [facility] [address] [place] [address] Social History Date Tobacco Use [...] Specialty 07/28/2021 [place] [address] [place] [address] 07/29/2021 Office Visit Medical Oncology documented as of this encounter Visit Diagnoses Not on filedocumented in this encounter Care Teams Start Date End Date Robotic Machine Operator Relationship Specialty 09/06/14 Singh Justin MD PCP - General Family [address] [facility] [address] [place] [address] documented as of this encounter
--- OUTSIDE RECORDS SUMMARY | 2021-07-17 09:32 | XMS REPORT | Encounter Summary ---
Author Author [facility] Organization [facility] Address Unknown Phone Unavailable Care Team Providers Care Electric Motor Assembler Name Role Phone Singh Justin MD PCP Encounter Details Care Team Description Date Type Department Leilani Garcia RN Multiple myeloma in remission (HCC) ([facility] Dx) 05/29/2021 Orders Only [facility] [address] [place] [address] Social History Date Tobacco Use [...] Specialty 07/28/2021 [place] [address] [address] [place] [address] 07/29/2021 Office Visit Medical Oncology documented as of this encounter Visit Diagnoses Diagnosis Multiple myeloma in remission (HCC) - P rimary Multiple myeloma in remission documented in this encounter Care Teams Start Date End Date Electric Motor Assembler Relationship Specialty 09/06/14 Singh Justin MD PCP - General [facility] [address] [place] [address] documented as of this encounter
[2021-07-17 09:57] VITALS: BP 116/77
--- NOTE | 2021-07-17 10:02 | ED General ---
General Chief Complaint: Dizziness/Syncope Stated Complaint: DIZZINESS, LOW BP History of Present Illness Date Seen by Provider: Jul 17, 2021 Time Seen by Provider: 10:02 Initial Comments Patient presenting to the emergency department for evaluation of dizziness headache and chills that started this morning. He says he took a Tylenol at around 6:00 this morning but as he still continues to feel the symptoms. He says that the dizziness is a lightheaded sensation most prominent when he is standing. The headache is a diffuse mild pounding. Patient denies any measured fever and also denies any nausea vomiting photophobia unilateral weakness numbness tingling cough dyspnea dysuria or rash. He is currently undergoing chemotherapy for multiple myeloma with his last oral chemotherapy dose 2 days ago. His oncologist is at [facility]. He is concerned that he may have influenza as he had influenza this March after he had visitors. He is in no acute distress with normal vital signs. Allergies and Home Medications Allergies Coded Allergies: No Known Drug Allergies (Unverified , 07/17/21) Patient Home Medication List Home Medication List Reviewed: Yes Review of Systems Review of Systems Constitutional: chills, dizziness EENTM: no symptoms reported Respiratory: no symptoms reported Cardiovascular: no symptoms reported Gastrointestinal: no symptoms reported Musculoskeletal: no symptoms reported Skin: no symptoms reported Psychiatric/Neurological: Headache All Other Systems Reviewed Negative Unless Noted: Yes Physical Exam Vital Signs Vital Signs - First Documented 07/17/21 09:57 Temp 36.4 Pulse 104 Resp 20 B/P (MAP) 116/77 (90) Capillary Refill : Height, Weight, BMI Height: '" Weight: lbs. oz. kg; BMI Method: General Appearance: No Apparent Distress, WD/WN HEENT: PERRL/EOMI Neck: Full Range of Motion, Non Tender, Supple Respiratory: Lungs Clear, No Respiratory Distress Cardiovascular: Regular Rate, Rhythm, No Edema Gastrointestinal: Non Tender, Soft Extremity: Normal Capillary Refill Neurologic/Psychiatric: Alert, Oriented x3 Skin: Warm/Dry Progress/Results/Core Measures Suspected Sepsis SIRS Temperature: Pulse: Respiratory Rate: Laboratory Tests 07/17/21 10:08: White Blood Count 3.3L Blood Pressure / Mean: Laboratory Tests 07/17/21 10:08: Creatinine 1.25, Platelet Count 134, Total Bilirubin 0.6 Results/Orders Lab Results Laboratory Tests Test 07/17/21 10:08 07/17/21 10:24 Range/Units White Blood Count 3.3 L 4.3-11.0 10^3/uL Red Blood Count 4.40 4.30-5.52 10^6/uL Hemoglobin 13.9 13.3-17.7 g/dL Hematocrit 40 40-54 % Mean Corpuscular Volume 92 80-99 fL Mean Corpuscular Hemoglobin 32 25-34 pg Mean Corpuscular Hemoglobin Concent 34 32-36 g/dL Red Cell Distribution Width 14.6 H 10.0-14.5 % Platelet Count 134 130-400 10^3/uL Mean Platelet Volume 9.6 9.0-12.2 fL Immature Granulocyte % (Auto) 0 % Neutrophils (%) (Auto) 66 42-75 % Lymphocytes (%) (Auto) 13 12-44 % Monocytes (%) (Auto) 19 H 0-12 % Eosinophils (%) (Auto) 1 0-10 % Basophils (%) (Auto) 1 0-10 % Neutrophils # (Auto) 2.2 1.8-7.8 X 10^3 Lymphocytes # (Auto) 0.4 L 1.0-4.0 X 10^3 Monocytes # (Auto) 0.6 0.0-1.0 X 10^3 Eosinophils # (Auto) 0.0 0.0-0.3 10^3/uL Basophils # (Auto) 0.0 0.0-0.1 10^3/uL Immature Granulocyte # (Auto) 0.0 0.0-0.1 10^3/uL Neutrophils % (Manual) 25 % Lymphocytes % (Manual) 17 % Monocytes % (Manual) 19 % Eosinophils % (Manual) 0 % Basophils % (Manual) 0 % Band Neutrophils 39 % Sodium Level 136 135-145 MMOL/L Potassium Level 4.1 3.6-5.0 MMOL/L Chloride Level 99 98-107 MMOL/L Carbon Dioxide Level 24 21-32 MMOL/L Anion Gap 13 5-14 MMOL/L Blood Urea Nitrogen 21 H 7-18 MG/DL Creatinine 1.25 0.60-1.30 MG/DL Estimat Glomerular Filtration Rate 58 BUN/Creatinine Ratio 17 Glucose Level 126 H 70-105 MG/DL Calcium Level 9.0 8.5-10.1 MG/DL Corrected Calcium 8.8 8.5-10.1 MG/DL Total Bilirubin 0.6 0.1-1.0 MG/DL Aspartate Amino Transf (AST/SGOT) 22 5-34 U/L Alanine Aminotransferase (ALT/SGPT) 31 0-55 U/L Alkaline Phosphatase 46 40-136 U/L Total Protein 7.2 6.4-8.2 GM/DL Albumin 4.3 3.2-4.5 GM/DL Influenza Type A Antigen NEGATIVE NEGATIVE Influenza Type B Antigen NEGATIVE NEGATIVE Urine Color DK YELLOW Urine Clarity CLEAR Urine pH 6.0 5-9 Urine Specific [place] 1.020 1.016-1.022 Urine Protein TRACE H NEGATIVE Urine Glucose (UA) NEGATIVE NEGATIVE Urine Ketones TRACE H NEGATIVE Urine Nitrite NEGATIVE NEGATIVE Urine Bilirubin 1+ H NEGATIVE Urine Urobilinogen 0.2 < = 1.0 MG/DL Urine Leukocyte Esterase NEGATIVE NEGATIVE Urine RBC (Auto) TRACE-I H NEGATIVE Urine RBC 2-5 H /HPF Urine WBC RARE /HPF Urine Squamous Epithelial Cells NONE /HPF Urine Crystals NONE /LPF Urine Bacteria NEGATIVE /HPF Urine Casts NONE /LPF Urine Mucus NEGATIVE /LPF Urine Culture Indicated NO My Orders Orders - LOGAN DUONG DO Iv/Invasive Line Insertion .IV start (07/17/21 10:03) Ct Head Wo (07/17/21 10:03) Cbc With Automated Diff (07/17/21 10:03) Comprehensive Metabolic Panel (07/17/21 10:03) Chest 1 View Ap/Pa Only (07/17/21 10:03) Ua Culture If Indicated (07/17/21 10:03) Blood Culture (07/17/21 10:03) Coronavirus Sars-Cov-2 So 2018 (07/17/21 10:03) Hydrocodone/Apap 5/325 Tablet (Lortab 5 (07/17/21 10:15) Manual Differential (07/17/21 10:08) Blood Culture (07/17/21 10:36) Influenza A & B Antigens (07/17/21 10:49) Ns Iv 1000 Ml (Sodium Chloride 0.9%) (07/17/21 11:45) Vital Signs/I&O 07/17/21 09:57 Temp 36.4 Pulse 104 Resp 20 B/P (MAP) 116/77 (90) Capillary Refill : Progress Note : Progress Note Patient has symptoms of possible viral syndrome with dehydration and orthostasis. Given he is on chemotherapy and is at high risk for serious bacterial infection will check labs imaging treat with IV fluids Toradol and reassess. Patient's absolute neutrophil count is approximately 2200. Patient does have findings of possible pneumonia versus atelectasis on his x-ray and I discussed his symptoms and he does feel that he is similar to prior pneumonia diagnosis with fatigue and chills. Patient's work-up was otherwise unremarkable. Patient appears well with normal vital signs I will discharge him in stable condition on Augmentin told him to follow-up primary care provider within 3 to 4 days for recheck and come back to the emergency department sooner with worsening pain shortness of breath fevers or other general concerns. Patient aware and agreeable with plan and verbalized understanding of the above instructions. Departure Impression Primary Impression: Dizziness Additional Impressions: Headache Qualified Codes: R51.9 - Headache, unspecified Chills Pneumonia Disposition: HOME, SELF-CARE Condition: Stable Departure-Patient Inst. Referrals: NO,LOCAL PHYSICIAN (PCP/Family) Primary Care Physician Patient Instructions: Pneumonia, Adult (DC) Scripts Amoxicillin/Potassium Clav (Augmentin 875-125 Tablet) 1 Each Tablet 1 EACH PO BID, #14 TAB 0 Refills Prov: LOGAN DUONG DO 07/17/21 LOGAN DUONG DO Jul 17, 2021 10:02
[2021-07-17] MEDS ORDERED: HYDROcodone/APAP 5 MG/325 MG (LORTAB) TAB PO ONE (10:15)
[2021-07-17 10:28] LABS: CLARITY,URINE CLEAR; GLUCOSE, URINE (UA) NEGATIVE (NEGATIVE); KETONES,URINE TRACE (NEGATIVE); LEUKOCYTE ESTERASE ,URINE NEGATIVE (NEGATIVE); NITRITE,URINE NEGATIVE (NEGATIVE); PROTEIN,URINE TRACE (NEGATIVE)
[2021-07-17 10:34] LABS: WHITE BLOOD COUNT 3.3 10^3/uL (4.3-11.0)
[2021-07-17 10:35] LABS: BASOPHILS % (AUTO) 1 % (0-10); EOSINOPHILS % (AUTO) 1 % (0-10); HEMATOCRIT 40 % (40-54); HEMOGLOBIN 13.9 g/dL (13.3-17.7); LYMPHOCYTES # (AUTO) 0.4 X 10^3 (1.0-4.0); LYMPHOCYTES % (AUTO) 13 % (12-44); MEAN CORPUSCULAR HEMOGLOBIN 32 pg (25-34); MEAN CORPUSCULAR HGB CONC 34 g/dL (32-36); MEAN CORPUSCULAR VOLUME 92 fL (80-99); MEAN PLATELET VOLUME 9.6 fL (9.0-12.2); MONOCYTES # (AUTO) 0.6 X 10^3 (0.0-1.0); MONOCYTES % (AUTO) 19 % (0-12); NEUTROPHILS # (AUTO) 2.2 X 10^3 (1.8-7.8); NEUTROPHILS % (AUTO) 66 % (42-75); PLATELET COUNT 134 10^3/uL (130-400)
--- NOTE | 2021-07-17 10:39 | Diagnostic Imaging Report ---
INDICATION: Chills, patient on chemotherapy. Frontal chest obtained at 10:22 a.m. There is no prior study for comparison. FINDINGS: Heart and mediastinal silhouette are normal in appearance. There is some minimal infiltrate versus atelectasis in both lung bases. There is no pneumothorax or pleural fluid. IMPRESSION: Minimal infiltrate versus atelectasis in both lung bases. Otherwise negative chest. Dictated by: Dictated on workstation # [id number]
[2021-07-17 10:44] LABS: CREATININE SERUM 1.25 MG/DL (0.60-1.30); POTASSIUM 4.1 MMOL/L (3.6-5.0)
[2021-07-17 10:45] LABS: ALBUMIN 4.3 GM/DL (3.2-4.5); BILIRUBIN,TOTAL 0.6 MG/DL (0.1-1.0); TOTAL PROTEIN 7.2 GM/DL (6.4-8.2)
[2021-07-17 10:46] LABS: COLOR,URINE DK YELLOW
[2021-07-17 10:47] LABS: BACTERIA,URINE NEGATIVE /HPF; BILIRUBIN,URINE 1+ (NEGATIVE); WBC,URINE RARE /HPF
--- NOTE | 2021-07-17 10:59 | Diagnostic Imaging Report ---
EXAMINATION: CT head without contrast. TECHNIQUE: Multiple contiguous axial images were obtained through the brain without the use of intravenous contrast. All CT scans use one or more of the following dose optimizing techniques: automated exposure control, MA and/or KvP adjustment based on patient size and exam type or iterative reconstruction. HISTORY: HEADACHE COMPARISON: None available. FINDINGS: The ventricles and sulci are normal. No abnormal attenuation of brain parenchyma is present. No acute intracranial hemorrhage or abnormal extra-axial fluid collections are present. No hyperdense vessel. The calvarium is intact. The mastoid air cells are clear. There is mucosal thickening of the paranasal sinuses. The orbits are normal. IMPRESSION: 1. No acute intracranial abnormality. Dictated by: Dictated on workstation # [id number]
[2021-07-17 11:13] LABS: BAND NEUTROPHILS 39 %; LYMPHOCYTES % (MANUAL) 17 %; NEUTROPHILS % (MANUAL) 25 %
[2021-07-17 11:14] LABS: BASOPHILS % (MANUAL) 0 %; EOSINOPHILS % (MANUAL) 0 %; MONOCYTES % (MANUAL) 19 %
[2021-07-17] MEDS ORDERED: NS IV 1000 ML 1,000 ML IV SCH (11:45)
[2021-07-17] MEDS ORDERED: AMOX-358 PO (11:48)
== END 2021-07-17 12:15 | disposition home or self-care (01) ==
LOC: ER FS 09:24
DX: C90.00 Multiple myeloma not having achieved remission (principal); R42 Dizziness and giddiness; R51.9 Headache, unspecified; R68.83 Chills (without fever); J18.9 Pneumonia, unspecified organism; Z20.822 Contact with and (suspected) exposure to COVID-19
CPT/HCPCS: 36415; 70450; 71045; 80053; 81000; 85007; 85027; 87040; 87635; 87804

== ENCOUNTER 2022-08-05 21:54 | Emergency (ER) | payer BC ==
[~2022-08-05] VITALS: Ht 185 cm; Wt 125.0 kg
[~2022-08-05 21:54] MED LIST: AMOX-358 PO
--- NOTE | 2022-08-05 22:08 | ED Chest Pain ---
General Stated Complaint: CHEST PRESSURE Source: patient Exam Limitations: no limitations History of Present Illness Date Seen by Provider: Aug 05, 2022 Time Seen by Provider: 22:00 Initial Comments 62-year-old male presents to the emergency department today for chest pressure. He describes mid central pressure without radiation. No obvious aggravating or alleviating factors. It is associated with some shortness of breath. He has been constant and started about 2 hours prior to arrival. He is concerned because he has history of DVT, pulmonary emboli. He is on Eliquis and has not missed any doses however he states he has had breakthrough pulmonary emboli in the past. He has had some mild calf tenderness especially on the left side over the last couple of days. He denies any fevers or chills. No cough. He has no cardiac stents. Does have a history of multiple myeloma so has diffuse bone and joint pains typically which are relatively unchanged. Allergies and Home Medications Allergies Coded Allergies: No Known Drug Allergies (Unverified , 07/17/21) Patient Home Medication List Home Medication List Reviewed: Yes Amoxicillin/Potassium Clav (Augmentin 875-125 Tablet) 1 Each Tablet, 1 EACH PO BID Prescribed by: LOGAN DUONG on 07/17/21 1148 Levofloxacin (Levofloxacin) 500 Mg Tablet, 500 MG PO DAILY Prescribed by: MICKI MEIER MD on 08/05/22 9329 Review of Systems Review of Systems Constitutional: no symptoms reported EENTM: No Symptoms Reported Respiratory: Shortness of Air Cardiovascular: Chest Pain Gastrointestinal: No Symptoms Reported Genitourinary: No Symptoms Reported Musculoskeletal: no symptoms reported Skin: no symptoms reported Psychiatric/Neurological: No Symptoms Reported Endocrine: No Symptoms Reported Hematologic/Lymphatic: No Symptoms Reported Past Qymoayc-[id number]-Bpktny Hx Patient Social History Tobacco Use?: No Use of E-Cig and/or Vaping dev: No Substance use?: No Alcohol Use?: No Family Medical History Reviewed Nursing Family Hx No Pertinent Family Hx Physical Exam Vital Signs Vital Signs - First Documented 08/05/22 22:38 Pulse 75 Resp 18 B/P (MAP) 155/89 (111) Pulse Ox 95 O2 Delivery Room Air Capillary Refill : Height, Weight, BMI Height: '" Weight: lbs. oz. kg; 36.00 BMI Method: General Appearance: No Apparent Distress, WD/WN HEENT: Normal ENT Inspection, Pharynx Normal Neck: Normal Inspection, Non Tender, Supple Respiratory: Chest Non Tender, Lungs Clear, Normal Breath Sounds, No Accessory Muscle Use, No Respiratory Distress Cardiovascular: Regular Rate, Rhythm, No Edema, No Gallop, No Murmur, Normal Peripheral Pulses Gastrointestinal: Normal Bowel Sounds, No Organomegaly, Non Tender, Soft Extremity: Normal Capillary Refill, Normal Inspection, Normal Range of Motion, Non Tender, No Calf Tenderness Neurologic/Psychiatric: Alert, Oriented x3, Normal Mood/Affect Skin: Normal Color, Warm/Dry Lymphatic: No Adenopathy Progress/Results/Core Measures Results/Orders Lab Results Laboratory Tests Test 08/05/22 22:06 08/05/22 22:23 Range/Units Prothrombin Time 14.9 H 12.2-14.7 SEC INR Comment 1.1 0.8-1.4 Activated Partial Thromboplast Time 33 24-35 SEC White Blood Count 7.2 4.3-11.0 10^3/uL Red Blood Count 4.28 L 4.30-5.52 10^6/uL Hemoglobin 13.2 L 13.3-17.7 g/dL Hematocrit 39 L 40-54 % Mean Corpuscular Volume 90 80-99 fL Mean Corpuscular Hemoglobin 31 25-34 pg Mean Corpuscular Hemoglobin Concent 34 32-36 g/dL Red Cell Distribution Width 15.0 H 10.0-14.5 % Platelet Count 127 L 130-400 10^3/uL Mean Platelet Volume 10.0 9.0-12.2 fL Immature Granulocyte % (Auto) 0 % Neutrophils (%) (Auto) 72 42-75 % Lymphocytes (%) (Auto) 12 12-44 % Monocytes (%) (Auto) 13 H 0-12 % Eosinophils (%) (Auto) 3 0-10 % Basophils (%) (Auto) 0 0-10 % Neutrophils # (Auto) 5.2 1.8-7.8 X 10^3 Lymphocytes # (Auto) 0.9 L 1.0-4.0 X 10^3 Monocytes # (Auto) 0.9 0.0-1.0 X 10^3 Eosinophils # (Auto) 0.2 0.0-0.3 10^3/uL Basophils # (Auto) 0.0 0.0-0.1 10^3/uL Immature Granulocyte # (Auto) 0.0 0.0-0.1 10^3/uL Percent Immature Platelet Fraction 1.8 0.0-7.6 % Sodium Level 137 135-145 MMOL/L Potassium Level 4.0 3.6-5.0 MMOL/L Chloride Level 98 98-107 MMOL/L Carbon Dioxide Level 26 21-32 MMOL/L Anion Gap 13 5-14 MMOL/L Blood Urea Nitrogen 19 H 7-18 MG/DL Creatinine 1.27 0.60-1.30 MG/DL Estimat Glomerular Filtration Rate 63 BUN/Creatinine Ratio 15 Glucose Level 121 H 70-105 MG/DL Calcium Level 8.7 8.5-10.1 MG/DL Corrected Calcium 8.6 8.5-10.1 MG/DL Total Bilirubin 0.5 0.1-1.0 MG/DL Aspartate Amino Transf (AST/SGOT) 28 5-34 U/L Alanine Aminotransferase (ALT/SGPT) 39 0-55 U/L Alkaline Phosphatase 58 40-136 U/L Myoglobin 94.4 H <72.0 NG/ML Troponin I < 0.30 <0.30 NG/ML Total Protein 7.6 6.4-8.2 GM/DL Albumin 4.1 3.2-4.5 GM/DL Lipase 14 8-78 U/L My Orders Orders - MICKI MEIER DO Cbc With Automated Diff (08/05/22 22:06) Chest 1 View Ap/Pa Only (08/05/22 22:06) Ekg Tracing (08/05/22 22:06) Comprehensive Metabolic Panel (08/05/22 22:06) Myoglobin Serum (08/05/22 22:06) Protime With Inr (08/05/22 22:06) Partial Thromboplastin Time (08/05/22 22:06) Aspirin Chewable Tablet (Baby Aspirin Ch (08/05/22 22:15) Ed Iv/Invasive Line Start (08/05/22 22:06) Lipase (08/05/22 22:06) Troponin I Fs (08/05/22 22:06) Ct Angio Chest W (08/05/22 22:08) Iohexol Injection (Omnipaque 350 Mg/Ml 1 (08/05/22 22:45) Received Contrast (Hold Metformin- Contr (08/05/22 22:45) Sodium Chloride Flush (Catheter Flush Sy (08/05/22 22:45) Ns (Ivpb) (Sodium Chloride 0.9% Ivpb Bag (08/05/22 22:45) Levofloxacin Tablet (Levaquin Tablet) (08/06/22 00:00) Medications Given in ED Current Medications Medications Dose Ordered Sig/Jada Route Start Time Stop Time Status Last Admin Dose Admin Aspirin 324 mg ONCE ONCE PO 08/05/22 22:15 08/05/22 22:16 DC 08/05/22 23:24 324 MG Iohexol 100 ml ONCE ONCE IV 08/05/22 22:45 08/05/22 22:47 DC 08/05/22 23:31 100 ML Sodium Chloride 10 ml NEEDED PRN IV 08/05/22 22:45 08/05/22 23:31 10 ML Sodium Chloride 100 ml ONCE ONCE IV 08/05/22 22:45 08/05/22 22:47 DC 08/05/22 23:31 100 ML Vital Signs/I&O 08/05/22 22:38 Pulse 75 Resp 18 B/P (MAP) 155/89 (111) Pulse Ox 95 O2 Delivery Room Air EKG : Comment sinus rhythm with rate 73 bpm. Normal intervals, normal axis. No ST or T wave abnormality, no ectopy. No STEMI Departure Communication (Admissions) Patient is hemodynamically stable. Chest x-ray shows likely lobar pneumonia versus wedge infarct. The scan shows no evidence for PE but does appear to have right-sided pneumonia. States he does have a predilection towards pneumonia. Given p.o. Levaquin here and discharged with prescription for the same. There is no evidence for ACS, other cardiac involvement at this time and pneumonia is the likely source of his pain. He has a normal EKG. Troponin is negative. Given strict return precautions given his immunocompromise status with multiple myeloma. He states understanding. He is discharged home in stable condition with supportive care. Impression Primary Impression: Community acquired bacterial pneumonia Disposition: HOME, SELF-CARE Condition: Stable Departure-Patient Inst. Referrals: NO,LOCAL PHYSICIAN (PCP/Family) Primary Care Physician Patient Instructions: Community-Acquired Pneumonia, Adult (DC) Add. Discharge Instructions: You appear to have pneumonia on the right side. Please take antibiotics as prescribed until they are gone. There is no indication of a new blood clot in your lungs at this time. Continue to take all previous medications including your Eliquis as previously prescribed. Return to the emergency department for any severe concerns. Follow-up with your primary doctor for any nonemergent needs. Scripts Levofloxacin (Levofloxacin) 500 Mg Tablet 500 MG PO DAILY for 7 Days, #7 TAB Prov: MICKI MEIER DO 08/05/22 MICKI MEIER DO Aug 05, 2022 22:08
[2022-08-05] MEDS ORDERED: ASPIRIN 81 MG CHEW (CHILDREN'S ASA) PO ONE (22:15)
[2022-08-05 22:39] LABS: HEMOGLOBIN 13.2 g/dL (13.3-17.7); MEAN CORPUSCULAR HEMOGLOBIN 31 pg (25-34); WHITE BLOOD COUNT 7.2 10^3/uL (4.3-11.0)
[2022-08-05 22:40] LABS: BASOPHILS % (AUTO) 0 % (0-10); EOSINOPHILS # (AUTO) 0.2 10^3/uL (0.0-0.3); EOSINOPHILS % (AUTO) 3 % (0-10); HEMATOCRIT 39 % (40-54); LYMPHOCYTES # (AUTO) 0.9 X 10^3 (1.0-4.0); LYMPHOCYTES % (AUTO) 12 % (12-44); MEAN CORPUSCULAR HGB CONC 34 g/dL (32-36); MEAN CORPUSCULAR VOLUME 90 fL (80-99); MONOCYTES # (AUTO) 0.9 X 10^3 (0.0-1.0); MONOCYTES % (AUTO) 13 % (0-12); NEUTROPHILS # (AUTO) 5.2 X 10^3 (1.8-7.8); NEUTROPHILS % (AUTO) 72 % (42-75); PLATELET COUNT 127 10^3/uL (130-400)
[2022-08-05] MEDS ORDERED: IOHEXOL 350 MG/ML 100 ML (OMNIPAQUE 350) VIAL IV ONE (22:45)
[2022-08-05] MEDS ORDERED: NS 100 ML (IVPB) BAG IV ONE (22:45)
[2022-08-05] MEDS ORDERED: CATHETER FLUSH 10 ML SYR IV PRN (22:45)
[2022-08-05] MEDS ORDERED: HOLD METFORMIN - RECEIVED CONTRAST 20 ML VIAL IV SCH (22:45)
[2022-08-05 22:47] LABS: INR 1.1 (0.8-1.4); PROTHROMBIN TIME PATIENT 14.9 SEC (12.2-14.7)
[2022-08-05 23:05] LABS: BILIRUBIN,TOTAL 0.5 MG/DL (0.1-1.0); CALCIUM 8.7 MG/DL (8.5-10.1); CREATININE SERUM 1.27 MG/DL (0.60-1.30)
[2022-08-05 23:06] LABS: ALBUMIN 4.1 GM/DL (3.2-4.5); TOTAL PROTEIN 7.6 GM/DL (6.4-8.2)
[2022-08-05] MEDS ORDERED: LEVO-55 PO (23:48)
[2022-08-06 00:05] VITALS: BP 144/65
--- NOTE | 2022-08-06 05:00 | Diagnostic Imaging Report ---
Indication: Chest pain Portable chest 10:37 PM There is a faint perihilar alveolar infiltrate. Left lung is clear. There is no effusion or pneumothorax. IMPRESSION: Right perihilar infiltrate new since 07/17/2021. This is suspicious for pneumonia. Dictated by: Dictated on workstation # [id number]
--- NOTE | 2022-08-06 06:57 | Diagnostic Imaging Report ---
PROCEDURE: CT angiography of the chest with contrast. TECHNIQUE: Multiple contiguous axial images were obtained through the chest after uneventful bolus administration of intravenous contrast. 3D reconstructed CTA MIP acquisitions were also performed. Auto Exposure Controls were utilized during the CT exam to meet ALARA standards for radiation dose reduction. INDICATION: Chest pain, shortness of breath There is infiltrate present in the posterior segment right upper lobe that is consistent with pneumonia. There is no effusion or pneumothorax. Aorta is unremarkable. There are no pulmonary emboli. There is no hilar or mediastinal lymphadenopathy. Thoracic spine is unremarkable. IMPRESSION: Right upper lobe pneumonia. I agree with preliminary interpretation. Dictated by: Dictated on workstation # [id number]
== END 2022-08-06 00:06 | disposition home or self-care (01) ==
LOC: EDUNIT# 21:54 → ER FS 21:55
DX: J15.9 Unspecified bacterial pneumonia (principal); Z79.01 Long term (current) use of anticoagulants
CPT/HCPCS: 36415; 71045; 71275; 80053; 83690; 83874; 84484; 85025; 85610; 85730; Q9967